=== PATIENT | female | born 2000 | race Caucasian/White ===

== ENCOUNTER 2020-05-31 17:06 | Emergency (ER) | payer OTHER ==
[~2020-05-31] VITALS: Ht 160 cm; Wt 51.0 kg
[2020-05-31] MEDS ORDERED: LIDOCAINE 2% MDV 20ML VIAL SC ONE (18:30)
[2020-05-31 18:54] VITALS: BP 114/65
== END 2020-05-31 18:55 | disposition home or self-care (01) ==
LOC: M ED 17:06
DX: S01.21XA Laceration without foreign body of nose, initial encounter (principal); W26.0XXA Contact with knife, initial encounter; Y92.019 Unspecified place in single-family (private) house as the place of occurrence of the external cause; Y93.9 Activity, unspecified; Y99.9 Unspecified external cause status

== ENCOUNTER → 2020-07-12 | Outpatient (REF) | payer OTHER | LOC: M LAB REF 16:22 | PROVIDERS: ATTEND Physician Assistant | DX: N91.2 Amenorrhea, unspecified (principal) ==

== ENCOUNTER → 2021-02-14 | Outpatient (REF) | payer OTHER | LOC: M SFHCWAGY 16:57 | PROVIDERS: ATTEND Obstetrics & Gynecology | DX: Z34.03 Encounter for supervision of normal first pregnancy, third trimester (principal); Z3A.00 Weeks of gestation of pregnancy not specified | CPT/HCPCS: 87081; G0463 ==

== ENCOUNTER 2021-03-16 11:59 | Inpatient (IN) | payer OTHER ==
[2021-03-16] VITALS (15 sets, daily range): BP systolic 111–138; BP diastolic 64–87
[~2021-03-16] VITALS: Ht 157.5 cm; Wt 69.4 kg
[2021-03-16] MEDS ORDERED: HOME MED LIST COMPLETE! XX SCH (12:20)
[2021-03-16] MEDS ORDERED: TRANEXAMIC ACID INJection 1,000 MG in NS 100 ML IV PRN (13:20)
[2021-03-16] MEDS ORDERED: OXYTOCIN INJ 10 UNITS/ML VIAL (J2590) IM PRN (13:20)
[2021-03-16] MEDS ORDERED: LIDOCAINE 1% MDV 20ML VIAL INFIL PRN (13:20)
[2021-03-16] MEDS ORDERED: miSOPROStol 50MCG 1/2 TABLET PO ONE (13:20)
[2021-03-16] MEDS ORDERED: CARBOPROST TROMETHAMINE 250 MCG/ML AMP IM PRN (13:20)
[2021-03-16] MEDS ORDERED: OXYTOCIN DRIP 30 UNITS in IV 1 EA IV PRN ×4 (13:20)
[2021-03-16] MEDS ORDERED: METHYLERGONOVINE MALEATE 0.2 MG/ML VIAL (J2210) IM PRN (13:20)
[2021-03-16 13:48] LABS: HEMATOCRIT 32.7 % (36.0-47.0); MEAN CORPUSCULAR HEMOGLOBIN 29.1 pg (27.0-33.0); MEAN CORPUSCULAR HGB CONC 33.6 g/dl (32.0-36.5); MEAN CORPUSCULAR VOLUME 86.5 fl (80.0-96.0); PLATELET COUNT, AUTOMATED 297 10^3/uL (150-450); RED BLOOD COUNT 3.78 10^6/uL (4.00-5.40); WHITE BLOOD COUNT 10.4 10^3/uL (4.0-10.0)
[2021-03-16] MEDS ORDERED: OXYTOCIN DRIP 30 UNITS in IV 1 EA IV SCH (15:00)
[2021-03-16] MEDS: LR 1,000 ML IV SCH (18:27)
[2021-03-16] MEDS ORDERED: BUTORPHANOL 2 MG/ML INJ (J0595) IV ONE (20:15)
[2021-03-16] MEDS ORDERED: PROMETHAZINE INJ 25 MG/ML VIAL (J2550) IV ONE (20:15)
[2021-03-16] MEDS ORDERED: FENTANYL 2MCG/ML ROPIVACAINE 0.2% IN 0.9% NACL 100ML IVBAG As Ordered ONE (23:58)
[2021-03-17] VITALS (26 sets, daily range): BP systolic 99–144; BP diastolic 54–79
[2021-03-17] MEDS: LR 1,000 ML IV SCH (00:07)
[2021-03-17] MEDS ORDERED: NALOXONE INJ 0.4MG/1ML VIAL (J2310 PER 1MG) IV PRN (01:15)
[2021-03-17] MEDS ORDERED: ONDANSETRON 4MG/2ML VIAL IV PRN (01:15)
[2021-03-17] MEDS ORDERED: EPIDURAL COMMENT XX SCH (01:15)
[2021-03-17] MEDS ORDERED: EPIDURAL/PCA KEYS XX PRN (01:15)
[2021-03-17] MEDS ORDERED: FENTANYL/ROPIVACAINE/NACL BAG 100 ML EPIDURAL SCH (01:15)
[2021-03-17] MEDS ORDERED: LACTATED RINGER'S 1000 ML IV PRN (01:15)
[2021-03-17] MEDS ORDERED: REFRIGERATOR IV KEYS XX PRN (01:15)
[2021-03-17] MEDS ORDERED: diphenhydrAMINE 50MG/ML VIAL (J1200) IV PRN (01:15)
[2021-03-17] MEDS ORDERED: ePHEDrine SULFATE 25 MG/5 ML(5MG/ML) SYRINGE IV PRN (01:15)
[2021-03-17 06:20] LABS: CORD GAS ABE V -11.1; CORD GAS HCO3 V 17.7 MEQ/L; CORD GAS PH V 7.159 UNITS; CORD GAS PO2 V 16.4 mmHg; CORD GAS SBC V 14.5 MEQ/L; CORD GAS TCO2 V 19.3 MEQ/L
[2021-03-17 06:23] LABS: CORD GAS ABE A -12.2; CORD GAS HCO3 A 17.4 MEQ/L; CORD GAS O2 SAT A 47.6 %; CORD GAS PCO2 A 54.4 mmHg; CORD GAS PH A 7.122 UNITS; CORD GAS PO2 A 22.8 mmHg; CORD GAS SBC A 14.1 MEQ/L
[2021-03-17] MEDS ORDERED: RHOGAM 300 MCG (1500 IU) INJ (J2790) IM SCH (06:40)
[2021-03-17] MEDS ORDERED: DOCUSATE SODIUM 100MG CAPSULE PO PRN (06:40)
[2021-03-17] MEDS ORDERED: OXYTOCIN DRIP 30 UNITS in IV 1 EA IV SCH (06:40)
[2021-03-17] MEDS ORDERED: ANUSOL HC CREAM 30GM TOP PRN (06:40)
[2021-03-17] MEDS ORDERED: METHYLERGONOVINE MALEATE 0.2 MG TAB PO PRN (06:40)
[2021-03-17] MEDS ORDERED: ACETAMINOPHEN TAB 650MG DOSE (2X325MG) PO PRN (06:40)
[2021-03-17] MEDS ORDERED: MEASLES,MUMPS,RUBELLA VACCINE INJ (MMR-II) (90707) SC SCH (06:40)
[2021-03-17] MEDS ORDERED: ACETAMINOPHEN 500 MG TAB PO PRN (06:40)
[2021-03-17] MEDS ORDERED: IBUPROFEN 600MG TAB PO PRN (06:40)
[2021-03-17] MEDS ORDERED: SLF 3 ML SYR IV PRN (08:45)
[2021-03-17] MEDS: PRENATAL VITAMINS CHEWABLE TABLET PO SCH (09:00)
[2021-03-17] MEDS: IBUPROFEN 800 MG TAB PO PRN ×2 (13:16→22:32)
[2021-03-17] MEDS: DIBUCAINE 1% OINTMENT 30GM TOP PRN (13:16)
[2021-03-17] MEDS: SLF 3 ML SYR IV SCH ×2 (14:00→22:16)
[2021-03-18] MEDS: SLF 3 ML SYR IV SCH ×2 (05:48→14:00)
[2021-03-18 05:58] VITALS: BP 102/65
[2021-03-18] MEDS: PRENATAL VITAMINS CHEWABLE TABLET PO SCH (09:00)
[2021-03-18 17:49] VITALS: BP 117/72
[2021-03-18] MEDS: DIBUCAINE 1% OINTMENT 30GM TOP PRN (20:31)
[2021-03-18] MEDS: IBUPROFEN 800 MG TAB PO PRN (22:59)
[2021-03-19 06:00] VITALS: BP 113/57
[2021-03-19] MEDS: PRENATAL VITAMINS CHEWABLE TABLET PO SCH (07:55)
[2021-03-19] MEDS ORDERED: IBUP80TA PO (11:07)
[2021-03-19] MEDS ORDERED: ACET-683 PO (11:07)
[2021-03-19 18:00] VITALS: BP 119/64
== END 2021-03-19 16:00 | disposition home or self-care (01) | DRG 807 ==
LOC: M LDI 11:59 → M OBS 03-17 08:09
PROVIDERS: ADMIT Advanced Practice Midwife; ATTEND Advanced Practice Midwife
PROC: 3E033VJ Introduction of Other Hormone into Peripheral Vein, Percutaneous Approach (ICD-10-PCS; 2021-03-16)
PROC: 3E0DXGC Introduction of Other Therapeutic Substance into Mouth and Pharynx, External Approach (ICD-10-PCS; 2021-03-16)
PROC: 10E0XZZ Delivery of Products of Conception, External Approach (ICD-10-PCS; principal; 2021-03-17)
PROC: 0HQ9XZZ Repair Perineum Skin, External Approach (ICD-10-PCS; 2021-03-17)
DX: O70.0 First degree perineal laceration during delivery (principal); Z37.0 Single live birth; Z3A.39 39 weeks gestation of pregnancy